=== PATIENT | male | born 1985 | race Caucasian/White ===

== ENCOUNTER 2023-11-24 11:44 | Inpatient (IN) ==
[2023-11-24 12:26] LABS: Basophils # (auto) 0.05 K/uL (0.00-0.20); Basophils % (auto) 0.5 %; Eosinophils # (auto) 0.21 K/uL (0.00-0.50); Eosinophils % (auto) 1.9 %; Hematocrit (blood only) 42.8 % (42.0-52.0); Hemoglobin 14.7 g/dl (14.0-18.0); Immature Granulocytes # (auto) 0.06 K/uL (0.01-0.20); Immature Granulocytes % (auto) 0.6 %; Lymphocytes # (auto) 1.83 K/uL (1.20-3.40); Lymphocytes % (auto) 16.8 %; Mean Corpuscular Hemoglobin 30.5 pg (25.0-34.0); Mean Corpuscular Hgb Conc 34.3 g/dL (32.0-36.0); Mean Corpuscular Volume 88.8 fL (80.0-100.0); Mean Platelet Volume 10.8 fL (9.4-12.4); Monocytes # (auto) 0.92 K/uL (0.11-0.59); Monocytes % (auto) 8.4 %; Neutrophils # (auto) 7.83 K/uL (1.40-6.50); Neutrophils % (auto) 71.8 %; Platelet Count 189 K/uL (130-400); RDW Coefficient of Variation 12.8 % (11.5-14.5); RDW Standard Deviation 41.5 fL (36.4-46.3); Red Blood Count 4.82 M/uL (4.70-6.10)
[2023-11-24] MEDS ORDERED: ONDANSETRON INJ 2 MG/ML 2 ML VIAL IV STA (12:51)
[2023-11-24] MEDS ORDERED: MoRPHine SULFATE 4 MG/ML 1 ML CARP\\VIAL IV STA ×2 (12:51→17:28)
[2023-11-24] MEDS ORDERED: SODIUM CHLORIDE 0.9% 1,000 ML IV ONE (12:51)
[2023-11-24 13:01] LABS: Albumin Globulin Ratio 1.5 (0.9-2); BUN Creatinine Ratio 9.3 (10-20); Bilirubin,Total 0.6 mg/dl (0.2-1.0); Calcium 8.9 mg/dl (8.6-10.3); Creatinine Clr Calc Pharmacy 109.9 ml/min; Est GFR (African American) 101.8 ml/min; Est GFR (Non-African American) 87.8 ml/min; Globulin 2.6 gm/dl (2.5-4.0); Magnesium 1.2 mg/dl (1.7-2.4); Potassium 3.1 mmol/L (3.5-5.1); Total Protein 6.6 gm/dl (6.0-8.3)
[2023-11-24] MEDS: MAGNESIUM SULFATE / D5W 1 GM/100 ML BAG IV SCH ×2 (13:58→14:52)
--- NOTE | 2023-11-24 14:29 | History & Physical Report ---
Date of Service November 24, 2023 Assessment & Plan (1) Acute pancreatitis: Plan: Patient was seen at [facility] ED on the evening of 11/23 and diagnosed with pancreatitis; plan was for admission, but given no GI doctor was available and patient was unsure if he could get off work in the morning, patient decided to leave Patient came to [facility] ED on 11/24 for sharp epigastric pain radiating to back x 5 days Denies alcohol use Mild leukocytosis at 10.90 with a neutrophil predominance; afebrile Lipase mildly elevated 160 on arrival LFTs WNL Triglyceride level mildly elevated at 217 UA positive for proteins +2; urine protein/creatinine ratio ordered, pending EKG revealed NSR at 70 bpm; QTc 421 Keep n.p.o. for now, then advance to clear liquid diet at 24-48 hours; low-fat diet as tolerated Continue fluid resuscitation with LR at 150 mL/hr x 5 Zofran as needed for nausea/vomiting CT with imaging from [facility] ED uploaded via CD suggestive of pancreatitis; consider obtaining a second CT abdomen/pelvis if clinical deterioration Pain control with acetaminophen and Dilaudid as needed Gastroenterology consulted as CT imaging recommended EUS assessment A.m. CBC, BMP, mag, A1c (2) Hypomagnesemia: Plan: Magnesium 1.2 on arrival Magnesium sulfate 1 g IV x 2 given in the ED ?Secondary to diarrhea/GI losses Recheck a.m. mag (3) Hypokalemia: Plan: Potassium 3.1 on arrival K riders 10mEq x 2 Recheck AM BMP (4) Gout: Plan: Continue allopurinol, colchicine (5) Anxiety: Plan: Continue hydroxyzine (6) GERD (gastroesophageal reflux disease): Plan: Continue pantoprazole (7) Erectile dysfunction: Plan: Continue escitalopram (8) Diarrhea: Plan: Patient endorses dark, tarry stools In the setting of colchine use for gout & recent pepto bismol use for H. pylori infection (Quad therapy with PPI, bismuth, tetracycline, and metronidazole) (9) Tobacco use: Plan: Current tobacco cigarette smoker; 1 PPD Nicotine patch with daily removal while inpatient Plan Disposition: Admit to [facility] telemetry Full code Keep n.p.o. 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 He presented for severe epigastric pain that has been worsening over the past 2 months, with an acute worsening x 5 days. Patient reports that he developed stomach pain 2 months ago and had a colonoscopy and endoscopy; he was subsequently diagnosed with H. pylori and placed on quad therapy with PPI, bismuth, tetracycline, and metronidazole. This course was completed, but then he developed a sharp epigastric pain stabbing just under his rib cage 5 days ago. This pain radiates to his back. He describes it as constant, stabbing. Rated 9/10 at worst, 5/10 at present. Patient has been taking Tylenol 1000 mg daily for the pain. He reports that it is worse with eating. He has not been tolerating solids or liquids due to the pain. The patient went to [facility] ED last night and had a CT/abdomen the pelvis performed with a diagnosis of pancreatitis; the plan was for the patient to be admitted, however the patient decided to leave as [facility] did not have a GI doctor available, and the patient needed to confirm he can get off work. He denies alcohol use. He endorses tobacco cigarette smoking; 1 PPD. He did not take his regular morning medications today, which include medications for gout and anxiety. Patient surgical history includes appendectomy; no history of cholecystectomy. Patient is hypertensive at 152/104 at time of admission; vitals otherwise stable. ED course: Zofran 4 mg IV Morphine sulfate 4 mg IV NSS 1000 mL Magnesium sulfate 1 g IV ROS: Patient endorses chills, sweating, headache, chest palpitations, SOB at rest, epigastric pain radiating to the back, diarrhea, and black tarry stool. Patient denies fever, body aches, dizziness, lightheadedness, nausea/vomiting, or blood in the urine. Allergies Allergy/AdvReac Type Severity Reaction Status Date / Time No Known Allergies Allergy Verified 11/24/23 14:18 Home Medications Medication Instructions Recorded Confirmed Type colchicine 0.6 mg tablet 0.6 mg PO QAM 04/10/23 11/24/23 History hydroxyzine HCl 25 mg tablet 25 mg PO HS 04/10/23 11/24/23 History acetaminophen 500 mg tablet 500 mg PO Q6H PRN pain/fever 11/24/23 11/24/23 History allopurinol 300 mg tablet 300 mg PO QAM 11/24/23 11/24/23 History escitalopram oxalate 20 mg tablet 20 mg PO HS 11/24/23 11/24/23 History pantoprazole 40 mg tablet,delayed 40 mg PO BID 11/24/23 11/24/23 History release Past Med/Surg History Medical History (Updated 11/24/23 @ 17:48 by Walker Fitzgerald PA-C) Tobacco use GERD (gastroesophageal reflux disease) Polycystic kidney disease Surgical History H/O knee surgery Hx of appendectomy Family History Mother Diabetes Cancer Colon Hypertension Kidney stone Father Heart disease Social History Smoking Status: Current every day smoker Tobacco Type: Cigarettes Second Hand Exposure: Yes; Do You Dip or Chew Tobacco: No; Hx Alcohol Use: No Hx Substance Use: No Preferred Language: Fijian Communication Ability: Effective Digital Strategist Required: No Beliefs That Will Affect Care: None marital status: Single Current Living Situation: Family current occupational status: employed Other Information That Helps Us Care for You: No Feels Safe at Home: Yes Safety Concerns: Feels Safe At This Time Assistive Devices: None Review of Systems Review of Systems: See HPI above Physical Exam Physical Exam: General: Mild physical distress secondary to epigastric pain; pleasant affect; non-toxic appearing; well-nourished; cooperative HEENT: normocephalic, atraumatic; no scleral icterus; PERRLA w/ EOMs intact; moist mucus membrane; vision and hearing grossly intact Neck: supple; no lymphadenopathy; trachea midline Skin: warm, dry without signs of tenting; no cyanosis; no rashes, bruising, lesions, or erythema noted CV: chest wall NTP; RRR; S1/S2 normal; no murmurs/rubs/gallops; bounding pulses intact and symmetric at radial, DP, and PT Lungs: no acute respiratory distress; symmetrical chest wall expansion; clear breath sounds across all lung chakraborty w/o adventitious sounds; no wheezing ABD: Soft; epigastric region mildly TTP; BS present; no rebound/guarding; no ascites; no distention; no signs of bruising, bleeding, erythema, or rashes on the abdomen or back; positive CVA tenderness; spine NTP MSK: no tics or fasciculations; no edema noted in the LEs b/l, nonerythematous, decreased hair growth Neuro: A&Ox3; normal mood and affect; fluent speech; no focal deficits; sensation grossly intact in the LEs b/l Results & Data Results & Data Vital Signs (Past 12 Hours) Vital Signs Temp Pulse Pulse Resp BP BP Pulse Ox 11/24/23 13:59 70 18 152/104 H 98 11/24/23 13:02 80 18 152/98 H 96 11/24/23 11:48 37 C 103 H 18 144/103 H 97 O2 Del Method 11/24/23 13:59 Room Air 11/24/23 13:02 Room Air 11/24/23 11:48 Room Air Laboratory Results Abnormal lab results 11/24/23 Range/Units 12:05 WBC 10.90 H (4.8-10.8) K/ul Neut # (Auto) 7.83 H (1.40-6.50) K/uL [place] # (Auto) 0.92 H (0.11-0.59) K/uL Potassium 3.1 L (3.5-5.1) mmol/L BUN/Creatinine Ratio 9.3 L (10-20) Glucose 208 H (70-99(Fasting)) mg/dl Magnesium 1.2 L (1.7-2.4) mg/dl Lipase 160 H (11-82) U/L Diagnostic Findings CT abdomen plus pelvis with contrast received from [facility] (performed at 0008 on 11/24/2023) reported the following impression: Enlarged pancreatic head and uncinate process showing ill-defined hypoenhancing areas with related hypodense sheets as described. The lack of obvious vascular invasion and biliopancreatic obstruction raise the possibility of an inflammatory process (massforming pancreatitis) yet the neoplastic nature cannot be excluded. Advise clinicallaboratory correlation and EUS assessment. Swollen pancreatic body and tail with subtle smudged anahi-pancreatic fat planes and scattered fluid densities. Possibly inflammatory/pancreatitis. Code Status & VTE Plan Code Status Full code VTE Prophylaxis Plan VTE Prophylaxis will be ordered: Yes PG Care Time/CCT Total # of Minutes Spent Total Time Spent with Patient: Total time spent is greater than 50% in coordination of care (as documented) at patient's floor/unit and/or counseling patient: [place] [address] INT INP/OBS CARE 2/55MIN Patient Type New History Comprehensive Exam Comprehensive Medical Decision Making Moderate Complexity Diagnoses Acute pancreatitis K85.90 Hypomagnesemia E83.42 Hypokalemia E87.6 Gout M10.9 Anxiety F41.9 GERD (gastroesophageal reflux disease) K21.9 Erectile dysfunction N52.9 Diarrhea R19.7 Tobacco use Z72.0
[2023-11-24 14:49] LABS: Appearance Urine Clear (Clear); Bacteria Urine Automated Negative (Negative); Bilirubin Urine Negative (Negative); Blood Urine Trace (Negative); Color Urine Yellow; Glucose Urine UA Negative (Negative); Ketones Urine Negative (Negative); Leukocyte Esterase Urine Negative (Negative); Nitrite Urine Negative (Negative); Protein Urine 2+ (Negative); RBC Urine Automated 0-4 /hpf (0-4); Specific Gravity Urine 1.023 (1.000-1.030); Urobilinogen Urine Negative (Negative); pH Urine 6.5 (4.5-7.5)
[2023-11-24] MEDS ORDERED: MAGNESIUM SULFATE / D5W 1 GM/100 ML BAG IV ONE (15:28)
[2023-11-24] MEDS: LACTATED RINGER'S 1,000 ML IV SCH ×2 (15:49→21:39)
[2023-11-24] MEDS: POTASSIUM CHLORIDE / WTR 10 MEQ/100 ML PLCT IV SCH ×2 (15:50→16:53)
--- NOTE | 2023-11-24 16:21 | Emergency Department Note ---
History of Present Illness General Chief complaint: GI Assessment Stated complaint: gi problems History of Present Illness Provider complaint: Abdominal pain Maximum Pain Intensity: 8 38-year-old male presents emergency department for abdominal pain. Patient reports he has been having abdominal pain for the last few days. He reports that he went to [facility] emergency department and they told him his electrolytes were off and that he had pancreatitis and they wanted to transfer him to a facility that had GI capabilities because their facility does not and he decided to leave [facility] and come here to be evaluated first pancreatitis. He reports nausea no vomiting. He reports no alcohol or drug abuse. No fevers. No hematuria or dysuria. No melena or hematochezia. Home Medications Medication Instructions Recorded Confirmed Type colchicine 0.6 mg tablet 0.6 mg PO QAM 04/10/23 11/24/23 History hydroxyzine HCl 25 mg tablet 25 mg PO HS 04/10/23 11/24/23 History acetaminophen 500 mg tablet 500 mg PO Q6H PRN pain/fever 11/24/23 11/24/23 History allopurinol 300 mg tablet 300 mg PO QAM 11/24/23 11/24/23 History escitalopram oxalate 20 mg tablet 20 mg PO HS 11/24/23 11/24/23 History pantoprazole 40 mg tablet,delayed 40 mg PO BID 11/24/23 11/24/23 History release Allergies Allergy/AdvReac Type Severity Reaction Status Date / Time No Known Allergies Allergy Verified 11/24/23 14:18 Past Med/Surg History Medical History GERD (gastroesophageal reflux disease) Polycystic kidney disease Surgical History H/O knee surgery Hx of appendectomy Family History Mother Diabetes Cancer Colon Hypertension Kidney stone Father Heart disease Social History Smoking Status: Current every day smoker Hx Alcohol Use: Yes Preferred Language: Luxembourger marital status: Single current occupational status: employed Feels Safe at Home: Yes Physical Exam Vital Signs Vital Signs - 24 hr 11/24/23 11:48 11/24/23 13:02 11/24/23 13:59 Temperature 37 C Temperature Source Temporal Artery Scan Pulse Rate 103 H Pulse Rate [Right Finger] 80 70 Pulse Rhythm [Right Finger] Respiratory Rate 18 18 18 Respiratory Effort / Characteristics Non-Labored Spontaneous Non-Labored Respiratory Depth Normal Normal Respiratory Pattern Blood Pressure 144/103 H Blood Pressure [Left Arm] 152/98 H 152/104 H Blood Pressure Mean 116 Blood Pressure Mean [Left Arm] 116 120 Blood Pressure Position Sitting Blood Pressure Position [Left Arm] Lying Pulse Oximetry 97 96 98 Oxygen Delivery Method Room Air Room Air Room Air Sepsis Recent Fever Within 48 Hours No Sepsis New/Unexplained Change in Mental Status No Sepsis Action Taken by Nursing No Action Required 11/24/23 16:00 Temperature Temperature Source Pulse Rate Pulse Rate [Right Finger] 72 Pulse Rhythm [Right Finger] Regular Respiratory Rate 18 Respiratory Effort / Characteristics Non-Labored Respiratory Depth Normal Respiratory Pattern Regular Blood Pressure Blood Pressure [Left Arm] 160/113 H Blood Pressure Mean Blood Pressure Mean [Left Arm] 128 Blood Pressure Position Blood Pressure Position [Left Arm] Pulse Oximetry 97 Oxygen Delivery Method Room Air Sepsis Recent Fever Within 48 Hours Sepsis New/Unexplained Change in Mental Status Sepsis Action Taken by Nursing Physical Exam GENERAL: She is oriented to person, place, and time. She appears well-developed and well-nourished. She does not appear distressed. HENT: Exam performed. -Head: Normocephalic and atraumatic. -Right Ear: External ear normal. No mastoid erythema -Left Ear: External ear normal. No mastoid erythema -Mouth/Throat: The oropharynx is clear and moist. No trismus in the jaw. No dental abscesses or uvula swelling. No oropharyngeal exudate or tonsillar abscesses. EYES: Conjunctivae and EOM are normal.Right eye exhibits no discharge. Left eye exhibits no discharge. No scleral icterus. NECK: Normal range of motion. Neck supple. No JVD present. No tracheal deviation and normal range of motion present. CV: Normal rate, regular rhythm, normal heart sounds and intact distal pulses. There is no peripheral edema. Palpable radial pulses bue. PULM/CHEST: Effort normal and breath sounds normal. No respiratory distress. No stridor. She has no wheezes. She has no rales. -Chest Wall: She exhibits no tenderness. ABD: The abdomen is soft. Bowel sounds are normal. She has no distension. No mass is present. There is tenderness to palpation of the epigastric area. There is no rebound, no guarding, no Salomon's sign and no tenderness at McBurney's point. Rovsig negative MUSC/SKEL: Normal range of motion. There is no peripheral edema, tenderness or deformity. NEURO: Motor and sensation grossly intact. SKIN: Skin is warm and dry. She is not diaphoretic. PSYCH: She has a normal mood and affect. Behavior is normal. Judgment and thought content normal. Course Course : The patient was evaluated in room D1A. A complete history and physical exam was performed Cardiac monitoring: An order was placed for continuous cardiac monitoring. The monitor shows a rate of 70 with snus rhythm interpreted by me Patient presents emergency department with a CT disc with the images from his CT scan that were done at [facility] [address]. Will attempt to have these images uploaded to our PACS system. 1335: Vital signs stable. Labs are unremarkable with the exception of a magnesium of 1.2 and potassium of 3.1. Electrolyte repletion will be started in the emergency department. Lipase 160. Spoke with Dr. Jones and read him the report of the patient's CT from [facility] verbatim. He states that the patient might need an EUS and recommends that we speak with Ryan GALLARDO. 1340: Spoke with Glenys Davis. She states that the patient can be admitted to the hospitalist team and we should treat the patient as regular pancreatitis patient. Patient will be admitted to the [facility] hospitalist team. Administered Medications Lactated Ringer's (Lr) 1,000 mls @ 150 mls/hr IV .Q6H40M [facility] Stop: 11/26/23 00:04 Last Admin: 11/24/23 15:49 Dose: 150 mls/hr Documented By: LAWRENCE Magnesium Sulfate/Dextrose (Magnesium Sulfate / D5w) 1 gm in 100 mls @ 50 mls/hr IV ONE ONE Stop: 11/24/23 17:27 Last Admin: 11/24/23 15:50 Dose: 50 mls/hr Documented By: LAWRENCE Potassium Chloride ([place] / Wtr) 10 meq in 100 mls @ 100 mls/hr IV Q1H [facility] Stop: 11/24/23 17:29 Last Admin: 11/24/23 15:50 Dose: 100 mls/hr Documented By: LAWRENCE Discontinued Medications Sodium Chloride (Nss) 1,000 mls @ 999 mls/hr IV .Q1H1M ONE Stop: 11/24/23 13:51 Last Infusion: 11/24/23 14:46 Dose: Infused Documented By: Admin: 11/24/23 12:58 Dose: 999 mls/hr Documented By: KATYA Magnesium Sulfate/Dextrose (Magnesium Sulfate / D5w) 1 gm in 100 mls @ 100 mls/hr IV Q1H JUSTINO Stop: 11/24/23 15:34 Last Infusion: 11/24/23 15:50 Dose: Infused Documented By: Admin: 11/24/23 14:52 Dose: 100 mls/hr Documented By: Infusion: 11/24/23 14:52 Dose: Infused Documented By: Admin: 11/24/23 13:58 Dose: 100 mls/hr Documented By: EMELI Morphine Sulfate (Morphine Sulfate 4 Mg/Ml 1 Ml Carp\Vial) 4 mg IV NOW STA Stop: 11/24/23 12:52 Last Admin: 11/24/23 12:58 Dose: 4 mg Documented By: KATYA Ondansetron HCl (Ondansetron Inj 2 Mg/Ml 2 Ml Vial) 4 mg IV NOW STA Stop: 11/24/23 12:52 Last Admin: 11/24/23 12:58 Dose: 4 mg Documented By: KATYA Medical Decision Making Medical Records Attestation: I reviewed the patient's medical records. Patient presents with a CT abdomen report from [facility] [address]. CT of the abdomen pelvis report reads as the following: Enlarged pancreatic head and uncinate process showing ill-defined hypoenhancing areas, most evident along its medial and superior aspects. Is seen measuring about 3.7 x 4.2 cm along its axial diameters, indenting and relatively attenuating the portal vein confluence with no obvious infiltration. Smudge surrounding fat planes with related. Pancreas and pancreaticoduodenal hypodense sheets are seen extending along the jamey hepatis and portacaval regions creeping along the course of the extrahepatic biliary tracts. Associated relatively swollen pancreatic body and tail with subtle smudged peripancreatic fat planes and scattered pancreatic parenchymal and peripancreatic small foci of fluid densities. No pancreatic duct dilatation. Pain is superior mesenteric vesicles. However size liver showing segment 2 subscapular hypodense lesion measuring about 2.7 x 1.8 cm. No dilated intra or extrahepatic biliary tracts. Relatively collapsed gallbladder showing minimal and mural thickening likely fasting with no obvious radiodense calculi. The impression also advised clinical-laboratory correlation and EUS assessment possibly inflammatory/pancreatitis. Laboratory Data Attestation: I reviewed the patient's lab results. 11/24/23 12:05 11/24/23 12:05 Lab Results 11/24/23 11/24/23 Range/Units 12:05 Unknown WBC 10.90 H (4.8-10.8) K/ul RBC 4.82 (4.70-6.10) M/uL Hgb 14.7 (14.0-18.0) g/dl Hct 42.8 (42.0-52.0) % MCV 88.8 (80.0-100.0) fL MCH 30.5 (25.0-34.0) pg MCHC 34.3 (32.0-36.0) g/dL RDW Std Deviation 41.5 (36.4-46.3) fL RDW Coeff of [place] 12.8 (11.5-14.5) % Plt Count 189 (130-400) K/uL MPV 10.8 (9.4-12.4) fL Immature Gran % (Auto) 0.6 % Neut % (Auto) 71.8 % Lymph % (Auto) 16.8 % [place] % (Auto) 8.4 % Eos % (Auto) 1.9 % Baso % (Auto) 0.5 % Neut # (Auto) 7.83 H (1.40-6.50) K/uL Lymph # (Auto) 1.83 (1.20-3.40) K/uL [place] # (Auto) 0.92 H (0.11-0.59) K/uL Eos # (Auto) 0.21 (0.00-0.50) K/uL Baso # (Auto) 0.05 (0.00-0.20) K/uL Immature Gran # (Auto) 0.06 (0.01-0.20) K/uL Sodium 140 (136-145) mmol/L Potassium 3.1 L (3.5-5.1) mmol/L Chloride 101 (98-107) mmol/L Carbon Dioxide 30 (21-32) mmol/L Anion Gap 9 (3-11) BUN 10 (6-23) mg/dl Creatinine 1.08 (0.6-1.4) mg/dl Est Cr Clr Drug Dosing 109.9 ml/min Est GFR ( Amer) 101.8 ml/min Est GFR (Non-Af Amer) 87.8 ml/min BUN/Creatinine Ratio 9.3 L (10-20) Glucose 208 H (70-99(Fasting)) mg/dl Calcium 8.9 (8.6-10.3) mg/dl Magnesium 1.2 L (1.7-2.4) mg/dl Total Bilirubin 0.6 (0.2-1.0) mg/dl AST 22 (13-39) U/L ALT 26 (7-52) U/L Alkaline Phosphatase 59 (34-104) U/L Total Protein 6.6 (6.0-8.3) gm/dl Albumin 4.0 (3.4-5.0) gm/dl Globulin 2.6 (2.5-4.0) gm/dl Albumin/Globulin Ratio 1.5 (0.9-2) Triglycerides 217 H (0-150) mg/dl Lipase 160 H (11-82) U/L Urine Color Yellow Urine Appearance Clear (Clear) Urine pH 6.5 (4.5-7.5) Ur Specific [place] 1.023 (1.000-1.030) Urine Protein 2+ H (Negative) Urine Glucose (UA) Negative (Negative) Urine Ketones Negative (Negative) Urine Blood Trace H (Negative) Urine Nitrite Negative (Negative) Urine Bilirubin Negative (Negative) Urine Urobilinogen Negative (Negative) Ur Leukocyte Esterase Negative (Negative) Urine WBC (Auto) 1-5 (0-5) /hpf Urine RBC (Auto) 0-4 (0-4) /hpf U Hyaline Cast (Auto) 1-5 (0-5) /lpf U Epithel Cells (Auto) 10-20 H (0-5) /lpf Urine Bacteria (Auto) Negative (Negative) MDM Narrative : The patient was evaluated in room D1A. A complete history and physical exam was performed Cardiac monitoring: An order was placed for continuous cardiac monitoring. The monitor shows a rate of 70 with snus rhythm interpreted by me Patient presents emergency department with a CT disc with the images from his CT scan that were done at [facility] [address]. Will attempt to have these images uploaded to our PACS system. 1335: Vital signs stable. Labs are unremarkable with the exception of a magnesium of 1.2 and potassium of 3.1. Electrolyte repletion will be started in the emergency department. Lipase 160. Spoke with Dr. Jones and read him the report of the patient's CT from [facility] verbatim. He states that the patient might need an EUS and recommends that we speak with Ryan GALLARDO. 1340: Spoke with Glenys Davis. She states that the patient can be admitted to the hospitalist team and we should treat the patient as regular pancreatitis patient. Patient will be admitted to the [facility] hospitalist team. Impression & Plan Acute pancreatitis, Hypomagnesemia Discharge Plan Visit Data Chief Complaint: GI Assessment Stated Complaint: gi problems ED Provider: Avni Rojas Discharge Problem: Acute pancreatitis, Hypomagnesemia Patient Disposition: Admitted As Inpatient Forms Stand Alone Forms: My [facility] Prescriptions Prescriptions: No Action colchicine 0.6 mg tablet 0.6 mg PO QAM hydroxyzine HCl 25 mg tablet 25 mg PO HS acetaminophen [Tylenol Ex Str Rapid Release] 500 mg Tablet 500 mg PO Q6H PRN (Reason: pain/fever) pantoprazole 40 mg tablet,delayed release (DR/EC) 40 mg PO BID allopurinol 300 mg tablet 300 mg PO QAM escitalopram oxalate 20 mg tablet 20 mg PO HS Referrals Referrals: Zac Seth MD [Primary Care Provider] - Discharge Problem: Acute pancreatitis Qualifiers: Pancreatitis type: unspecified pancreatitis type Acute pancreatitis complication: unspecified Qualified Code(s): K85.90 - Acute pancreatitis without necrosis or infection, unspecified
[2023-11-24 16:22] LABS: Creatinine Urine Random 131.3 mg/dl; Protein Creatinine Ratio Urine 0.8 (0-0.2); Total Protein Urine Random 99.8 mg/dl (0-11.9)
[2023-11-24] MEDS ORDERED: ONDANSETRON INJ 2 MG/ML 2 ML VIAL IV PRN (17:51)
[2023-11-24] MEDS ORDERED: HYDROmorphone INJ 0.5 MG/0.5 ML SYR IV PRN (17:51)
[2023-11-24] MEDS ORDERED: ACETAMINOPHEN 325 MG TAB PO PRN (17:51)
[2023-11-24] MEDS: HYDROmorphone INJ 1 MG/ML SYRINGE IV PRN (18:33)
[2023-11-24] MEDS: ENOXAPARIN INJ 40 MG/0.4 ML SYR SQ SCH (21:26)
[2023-11-24] MEDS: NICOTINE 14 MG/24 HR PATCH TD SCH (21:26)
[2023-11-24] MEDS: ESCITALOPRAM OXALATE 20 MG TAB PO SCH (21:27)
[2023-11-24] MEDS: PANTOprazole 40 MG TAB PO SCH (21:27)
[2023-11-24] MEDS: hydrOXYzine HCl 25 MG TAB PO SCH (21:27)
[2023-11-25] MEDS: HYDROmorphone INJ 1 MG/ML SYRINGE IV PRN ×5 (00:45→21:58)
[2023-11-25] MEDS ORDERED: ARTIFICIAL TEARS OPB PRN (01:34)
[2023-11-25] MEDS: LACTATED RINGER'S 1,000 ML IV SCH ×4 (04:05→17:20)
[2023-11-25 08:14] LABS: Basophils # (auto) 0.05 K/uL (0.00-0.20); Basophils % (auto) 0.5 %; Eosinophils # (auto) 0.17 K/uL (0.00-0.50); Eosinophils % (auto) 1.6 %; Hemoglobin 13.7 g/dl (14.0-18.0); Immature Granulocytes # (auto) 0.04 K/uL (0.01-0.20); Immature Granulocytes % (auto) 0.4 %; Lymphocytes # (auto) 1.57 K/uL (1.20-3.40); Lymphocytes % (auto) 14.6 %; Mean Corpuscular Hemoglobin 30.8 pg (25.0-34.0); Mean Corpuscular Hgb Conc 35.1 g/dL (32.0-36.0); Mean Corpuscular Volume 87.6 fL (80.0-100.0); Mean Platelet Volume 10.7 fL (9.4-12.4); Monocytes # (auto) 0.82 K/uL (0.11-0.59); Monocytes % (auto) 7.6 %; Neutrophils # (auto) 8.11 K/uL (1.40-6.50); Neutrophils % (auto) 75.3 %; Platelet Count 172 K/uL (130-400); RDW Coefficient of Variation 12.8 % (11.5-14.5); RDW Standard Deviation 40.8 fL (36.4-46.3); Red Blood Count 4.45 M/uL (4.70-6.10); White Blood Count 10.76 K/ul (4.8-10.8)
[2023-11-25 08:33] LABS: BUN Creatinine Ratio 11.4 (10-20); Calcium 8.9 mg/dl (8.6-10.3); Creatinine Clr Calc Pharmacy 134.9 ml/min; Est GFR (African American) 128.1 ml/min; Est GFR (Non-African American) 110.5 ml/min; Magnesium 1.1 mg/dl (1.7-2.4); Potassium 3.2 mmol/L (3.5-5.1)
[2023-11-25] MEDS: NICOTINE 14 MG/24 HR PATCH TD SCH (08:35)
[2023-11-25] MEDS: allopurinoL 300 MG TAB PO SCH (08:35)
[2023-11-25] MEDS: COLCHICINE 0.6 MG TAB PO SCH (08:35)
[2023-11-25 09:01] LABS: Estimated Average Glucose 123 mg/dl; Hemoglobin A1C 5.9 % (4.5-5.6)
--- NOTE | 2023-11-25 09:12 | Gastrointestinal Consultation ---
Date of Consultation November 25, 2023 Assessment & Plan (1) Acute pancreatitis: 38 year old male with abd pain, nausea with OSH imaging concerning for pancreatitis NPO MRI ABD IV LR 150-200 mL/hr Antiemetics PRN Analgesia PRN Pending MRI will discuss timing of endoscopic procedures Thank you for allowing us to participate in the care of this patient. Please call with any acute changes, questions or concerns. Please see addendum below with additional recommendation from my supervising physician. Supervising Physician Co-Signing Physician Notes Attg add: I intereviewed and examined pt, reviewed chart and labs. Pt with 5 days of epigastric pain radiating to back; no prior history. + tobacco, denies etoh, MJ. No stones or mary dil on imaging, LFT's normal. Labs do not show sig hemoconcentration. On exam, he appears mildly dry. Abd exam shows only mild tenderness in epigastrium. MRI shows no mary dil, enlarged pancreas without peripanc fluid, muld small cysts throughout the pancreas. Pancreatitis - etiology unclear, possibly related to panc cysts. - Panc cysts may be serous given h/o PCKD; unsure if this is possible cause of pancreatitis. His PD is not well visualized on MRCP, and it is possible that cysts are impinging on PD. DDX = multifocal IPMN, which may also be a cause of pancreatitis. - IVF's, analgesia, diet as tolerated. Plan for repeat outpt imaging. History of Present Illness Reason for Consultation: ?pancreatitis Requesting Physician: Kae Attending Physician: Melanie Pal MD History of Present Illness 38 year old male admitted through the ED w/ pain, outside imaging showing pancreatitis - GI asked to evaluate. Pt was seen and evaluated, chart reviewed. Notes that he recently had an EGD/Colon completed in July in [place] for abd pain. Was found to have H.Pylori, this was treated. Suggests that about 1-2 weeks ago, started having different abd pain. Upper abd. Sharp. Constant. Mild nausea but no vomiting. This persistent so he went to the ED. In the ED was told he had pancreatitis but may need follow up testing thus was recommended to come to [facility]. This AM, pain is improved. He has nausea. No vomiting. Denies any ETOH use Denies illicit drug use + tobacco Only new medications were the ABX for H.Pylori a few months ago Father had issues with gallbladder and gallstones CTAP report is copied from ED note as it was done at OSH: Enlarged pancreatic head and uncinate process showing ill-defined hypoenhancing areas, most evident along its medial and superior aspects. Is seen measuring about 3.7 x 4.2 cm along its axial diameters, indenting and relatively attenuating the portal vein confluence with no obvious infiltration. Smudge surrounding fat planes with related. Pancreas and pancreaticoduodenal hypodense sheets are seen extending along the jamey hepatis and portacaval regions creeping along the course of the extrahepatic biliary tracts. Associated relatively swollen pancreatic body and tail with subtle smudged peripancreatic fat planes and scattered pancreatic parenchymal and peripancreatic small foci of fluid densities. No pancreatic duct dilatation. Pain is superior mesenteric vesicles. However size liver showing segment 2 subscapular hypodense lesion measuring about 2.7 x 1.8 cm. No dilated intra or extrahepatic biliary tracts. Relatively collapsed gallbladder showing minimal and mural thickening likely fasting with no obvious radiodense calculi. Allergies Allergy/AdvReac Type Severity Reaction Status Date / Time No Known Allergies Allergy Verified 11/24/23 14:18 Home Medications Medication Instructions Recorded Confirmed Type colchicine 0.6 mg tablet 0.6 mg PO QAM 04/10/23 11/24/23 History hydroxyzine HCl 25 mg tablet 25 mg PO HS 04/10/23 11/24/23 History acetaminophen 500 mg tablet 500 mg PO Q6H PRN pain/fever 11/24/23 11/24/23 History allopurinol 300 mg tablet 300 mg PO QAM 11/24/23 11/24/23 History escitalopram oxalate 20 mg tablet 20 mg PO HS 11/24/23 11/24/23 History pantoprazole 40 mg tablet,delayed 40 mg PO BID 11/24/23 11/24/23 History release Patient History Medical History (Updated 11/24/23 @ 18:41 by Walker Fitzgerald PA-C) Tobacco use GERD (gastroesophageal reflux disease) Polycystic kidney disease Surgical History H/O knee surgery Hx of appendectomy Family History Mother Diabetes Cancer Colon Hypertension Kidney stone Father Heart disease Social History Smoking Status: Current every day smoker Tobacco Type: Cigarettes Second Hand Exposure: Yes; Do You Dip or Chew Tobacco: No; Hx Alcohol Use: No Hx Substance Use: No Preferred Language: Moroccan Communication Ability: Effective Dispatcher Tugboat Required: No Beliefs That Will Affect Care: None marital status: Single Current Living Situation: Family current occupational status: employed Other Information That Helps Us Care for You: No Feels Safe at Home: Yes Safety Concerns: Feels Safe At This Time Assistive Devices: None Review of Systems Review of Systems: All systems reviewed & are unremarkable except as noted in HPI & below Physical Exam Constitutional: WD/WN, vitals as above Respiratory: normal respiratory effort Cardiovascular: Rate/Rhythm: regular rate Gastrointestinal (Abdomen): Percussion/Palpation: + abdomen tender (mild upper abd pain with palpation) and abdomen soft; no guarding and abdomen not rigid Skin: no rashes, warm and dry Results & Data Vital Signs (Past 12 Hours) Vital Signs Temp Pulse Pulse Resp BP Pulse Ox O2 Del Method 11/25/23 07:46 37.3 C 82 16 155/90 H 94 Room Air 11/25/23 07:25 79 11/25/23 03:04 37.1 C 84 16 142/89 H 94 Room Air 11/24/23 23:00 90 11/24/23 22:54 37.2 C 88 16 145/94 H 96 Room Air Laboratory Results 11/25/23 11/24/23 11/24/23 Range/Units 07:53 Unknown 15:55 WBC 10.76 (4.8-10.8) K/ul RBC 4.45 L (4.70-6.10) M/uL Hgb 13.7 L (14.0-18.0) g/dl Hct 39.0 L (42.0-52.0) % MCV 87.6 (80.0-100.0) fL MCH 30.8 (25.0-34.0) pg MCHC 35.1 (32.0-36.0) g/dL RDW Std Deviation 40.8 (36.4-46.3) fL RDW Coeff of Meche 12.8 (11.5-14.5) % Plt Count 172 (130-400) K/uL MPV 10.7 (9.4-12.4) fL Immature Gran % (Auto) 0.4 % Neut % (Auto) 75.3 % Lymph % (Auto) 14.6 % [place] % (Auto) 7.6 % Eos % (Auto) 1.6 % Baso % (Auto) 0.5 % Neut # (Auto) 8.11 H (1.40-6.50) K/uL Lymph # (Auto) 1.57 (1.20-3.40) K/uL [place] # (Auto) 0.82 H (0.11-0.59) K/uL Eos # (Auto) 0.17 (0.00-0.50) K/uL Baso # (Auto) 0.05 (0.00-0.20) K/uL Immature Gran # (Auto) 0.04 (0.01-0.20) K/uL Sodium 141 (136-145) mmol/L Potassium 3.2 L (3.5-5.1) mmol/L Chloride 102 (98-107) mmol/L Carbon Dioxide 28 (21-32) mmol/L Anion Gap 11 (3-11) BUN 10 (6-23) mg/dl Creatinine 0.88 (0.6-1.4) mg/dl Est Cr Clr Drug Dosing 134.9 ml/min Est GFR ( Amer) 128.1 ml/min Est GFR (Non-Af Amer) 110.5 ml/min BUN/Creatinine Ratio 11.4 (10-20) Glucose 81 (70-99(Fasting)) mg/dl Estimat Average Glucose 123 mg/dl Hemoglobin A1c 5.9 H (4.5-5.6) % Calcium 8.9 (8.6-10.3) mg/dl Magnesium 1.1 L (1.7-2.4) mg/dl Total Bilirubin (0.2-1.0) mg/dl AST (13-39) U/L ALT (7-52) U/L Alkaline Phosphatase (34-104) U/L Total Protein (6.0-8.3) gm/dl Albumin (3.4-5.0) gm/dl Globulin (2.5-4.0) gm/dl Albumin/Globulin Ratio (0.9-2) Triglycerides (0-150) mg/dl Lipase (11-82) U/L Urine Color Yellow Urine Appearance Clear (Clear) Urine pH 6.5 (4.5-7.5) Ur Specific [place] 1.023 (1.000-1.030) Urine Protein 2+ H (Negative) Urine Glucose (UA) Negative (Negative) Urine Ketones Negative (Negative) Urine Blood Trace H (Negative) Urine Nitrite Negative (Negative) Urine Bilirubin Negative (Negative) Urine Urobilinogen Negative (Negative) Ur Leukocyte Esterase Negative (Negative) Urine WBC (Auto) 1-5 (0-5) /hpf Urine RBC (Auto) 0-4 (0-4) /hpf U Hyaline Cast (Auto) 1-5 (0-5) /lpf U Epithel Cells (Auto) 10-20 H (0-5) /lpf Urine Bacteria (Auto) Negative (Negative) Ur Random Creatinine 131.3 mg/dl U Random Total Protein 99.8 H (0-11.9) mg/dl Protein/Creatinin Ratio 0.8 H (0-0.2) 11/24/23 Range/Units 12:05 WBC 10.90 H (4.8-10.8) K/ul RBC 4.82 (4.70-6.10) M/uL Hgb 14.7 (14.0-18.0) g/dl Hct 42.8 (42.0-52.0) % MCV 88.8 (80.0-100.0) fL MCH 30.5 (25.0-34.0) pg MCHC 34.3 (32.0-36.0) g/dL RDW Std Deviation 41.5 (36.4-46.3) fL RDW Coeff of Meche 12.8 (11.5-14.5) % Plt Count 189 (130-400) K/uL MPV 10.8 (9.4-12.4) fL Immature Gran % (Auto) 0.6 % Neut % (Auto) 71.8 % Lymph % (Auto) 16.8 % [place] % (Auto) 8.4 % Eos % (Auto) 1.9 % Baso % (Auto) 0.5 % Neut # (Auto) 7.83 H (1.40-6.50) K/uL Lymph # (Auto) 1.83 (1.20-3.40) K/uL [place] # (Auto) 0.92 H (0.11-0.59) K/uL Eos # (Auto) 0.21 (0.00-0.50) K/uL Baso # (Auto) 0.05 (0.00-0.20) K/uL Immature Gran # (Auto) 0.06 (0.01-0.20) K/uL Sodium 140 (136-145) mmol/L Potassium 3.1 L (3.5-5.1) mmol/L Chloride 101 (98-107) mmol/L Carbon Dioxide 30 (21-32) mmol/L Anion Gap 9 (3-11) BUN 10 (6-23) mg/dl Creatinine 1.08 (0.6-1.4) mg/dl Est Cr Clr Drug Dosing 109.9 ml/min Est GFR ( Amer) 101.8 ml/min Est GFR (Non-Af Amer) 87.8 ml/min BUN/Creatinine Ratio 9.3 L (10-20) Glucose 208 H (70-99(Fasting)) mg/dl Estimat Average Glucose mg/dl Hemoglobin A1c (4.5-5.6) % Calcium 8.9 (8.6-10.3) mg/dl Magnesium 1.2 L (1.7-2.4) mg/dl Total Bilirubin 0.6 (0.2-1.0) mg/dl AST 22 (13-39) U/L ALT 26 (7-52) U/L Alkaline Phosphatase 59 (34-104) U/L Total Protein 6.6 (6.0-8.3) gm/dl Albumin 4.0 (3.4-5.0) gm/dl Globulin 2.6 (2.5-4.0) gm/dl Albumin/Globulin Ratio 1.5 (0.9-2) Triglycerides 217 H (0-150) mg/dl Lipase 160 H (11-82) U/L Urine Color Urine Appearance (Clear) Urine pH (4.5-7.5) Ur Specific [place] (1.000-1.030) Urine Protein (Negative) Urine Glucose (UA) (Negative) Urine Ketones (Negative) Urine Blood (Negative) Urine Nitrite (Negative) Urine Bilirubin (Negative) Urine Urobilinogen (Negative) Ur Leukocyte Esterase (Negative) Urine WBC (Auto) (0-5) /hpf Urine RBC (Auto) (0-4) /hpf U Hyaline Cast (Auto) (0-5) /lpf U Epithel Cells (Auto) (0-5) /lpf Urine Bacteria (Auto) (Negative) Ur Random Creatinine mg/dl U Random Total Protein (0-11.9) mg/dl Protein/Creatinin Ratio (0-0.2) (1) Acute pancreatitis Acute pancreatitis complication: unspecified Pancreatitis type: unspecified pancreatitis type Qualified Code(s): K85.90 - Acute pancreatitis without necrosis or infection, unspecified
[2023-11-25] MEDS: PANTOprazole 40 MG TAB PO SCH ×2 (10:45→21:57)
[2023-11-25] MEDS ORDERED: KETOROLAC TROMETHAMINE 15 MG/ML VIAL IV ONE (11:30)
--- NOTE | 2023-11-25 12:27 | Hospitalist Progress Note ---
Date of Service November 25, 2023 Assessment & Plan (1) Acute pancreatitis: Plan: Patient was seen at [place] ED on the evening of 11/23 and diagnosed with pancreatitis; plan was for admission, but given no GI doctor was available and patient was unsure if he could get off work in the morning, patient decided to leave Patient came to [facility] ED on 11/24 for sharp epigastric pain radiating to back x 5 days Denies any history of alcohol use, denies starting any new medications CT abdomen consistent with acute pancreatitis, elevated lipase as well GI on consult, keep n.p.o. Plan is for MRI abdomen and possible endoscopy afterwards (2) Hypomagnesemia: Plan: Replace (3) Hypokalemia: Plan: Replace (4) Gout: Plan: Continue allopurinol, colchicine (5) Anxiety: Plan: Continue hydroxyzine (6) GERD (gastroesophageal reflux disease): Plan: Continue pantoprazole (7) Erectile dysfunction: Plan: Continue escitalopram (8) Diarrhea: Plan: Patient endorses dark, tarry stools In the setting of colchine use for gout & recent pepto bismol use for H. pylori infection (Quad therapy with PPI, bismuth, tetracycline, and metronidazole) (9) Tobacco use: Plan: Current tobacco cigarette smoker; 1 PPD Nicotine patch with daily removal while inpatient Plan Disposition: Admit to [facility] telemetry Full code Keep n.p.o. for now advance diet as tolerated VTE PPx: Lovenox 40 mg SQ q24h Admission and Anticipated Discharge Date Admission Date: November 24, 2023 Subjective Patient seen and examined, said the pain is much better is willing to try diet Review of Systems Review of Systems: All systems reviewed are negative, apart from the ones contained in the history. Physical Exam Physical Exam: The patient is awake, alert and oriented 3, well developed and well nourished, normocephalic and atraumatic, lying in bed and in no acute distress. HEENT--PERRL, EOMI, mucous membranes and oropharynx mildly dry Neck--supple. No JVD. No bruits. Thyroid normal, trachea midline, no adenopathy. Heart--normal S1 and S2. No murmurs, rubs or gallops. Lungs--clear bilaterally, no respiratory distress, no accessory muscle use. Abdomen--normal bowel sounds and soft. Mild epigastric and left sided abdominal pain Extremities--no cyanosis or clubbing. No edema. Dermatologic--normal skin turgor, normal color, no abnormal lymph nodes, no rash. Neurologic--cranial nerves II through XII grossly intact. Rheumatologic--normal range of motion. Psychiatric--normal affect. Results & Data Results & Data Vital Signs (Past 12 Hours) Vital Signs Temp Pulse Pulse Resp BP Pulse Ox O2 Del Method 11/25/23 11:32 98.1 F 87 18 128/85 93 Room Air 11/25/23 08:30 Room Air 11/25/23 07:46 99.1 F 82 16 155/90 H 94 Room Air 11/25/23 07:25 79 11/25/23 03:04 98.8 F 84 16 142/89 H 94 Room Air PG Care Time/CCT Total # of Minutes Spent Total Time Spent with Patient: Total time spent is greater than 50% in coordination of care (as documented) at patient's floor/unit and/or counseling patient: Coding Level of Care Code 45105 SUB INP/OBS CARE 2/35MIN Diagnoses Acute pancreatitis K85.90 Acute pancreatitis complication: unspecified Pancreatitis type: unspecified pancreatitis type Hypomagnesemia E83.42 Hypokalemia E87.6 Gout M10.9 Anxiety F41.9 GERD (gastroesophageal reflux disease) K21.9 Erectile dysfunction N52.9 Diarrhea R19.7 Tobacco use Z72.0 Time Spent (min) 35 (1) Acute pancreatitis Acute pancreatitis complication: unspecified Pancreatitis type: unspecified pancreatitis type Qualified Code(s): K85.90 - Acute pancreatitis without necrosis or infection, unspecified
[2023-11-25] MEDS ORDERED: GADOBUTROL 65ML VIAL IV ONE (13:34)
--- NOTE | 2023-11-25 14:11 | Magnetic Resonance Report ---
MRI OF THE ABDOMEN COMBO; MRCP CLINICAL HISTORY: Pancreatitis. COMPARISON STUDY: Abdominal CT dated 11/23/2023. TECHNIQUE: MRI of the abdomen is performed transverse T1 and T2-weighted sequences in the axial and c oronal planes. Contrast enhanced sequences were acquired following the IV administration of 9 cc of Gadavist. Diffusion weighted imaging and subtraction images were utilized. High-resolution MRCP imag es were obtained. 3-D reformats are created and assessed. FINDINGS: Lower chest: No pleural effusion is identified. The heart is normal in size. Liver: The liver is normal in size and contour. The liver shows diffuse drop in signal intensity on t he opposed phase images consistent with hepatic steatosis. No intrahepatic biliary ductal dilatation is seen. The hepatic veins and portal veins are patent. A 2.6 cm left lobe cyst is noted. Gallbladder/MRCP: The gallbladder is normal in appearance. No gallstones are identified. There is no intra or extrahepatic biliary ductal dilatation. The common bile duct measures up to 3.5 mm. No intra luminal filling defects are seen to suggest choledocholithiasis. The imaged portions of the pancreati c duct near the ampulla are normal in appearance. Spleen: The spleen is enlarged measuring 15 cm in length. Pancreas: The pancreas is enlarged comment heterogeneous, and edematous. There is peripancreatic infl ammation and fluid consistent with acute pancreatitis. The gland enhances throughout. Numerous (great er than 10) tiny cystic foci are seen throughout the pancreas and measure up to 1.0 cm. These are gre atest in the head and uncinate. No peripancreatic fluid collection is clearly seen. Adrenal glands: Unremarkable. Kidneys: The kidneys are normal in size and without hydronephrosis. The kidneys enhance and excrete s ymmetrically. There are numerous simple and complex renal cysts which measure up to 11 mm, left kidne y greater than right. No enhancing cortical lesion is identified. Abdominal aorta: Normal in course and caliber. Bowel: Visualized portions of the small bowel and colon show no evidence of obstruction. Peritoneum: There is no abdominal ascites. Retroperitoneal fluid is related to pancreatitis. Lymphadenopathy: None. Skeletal structures: Visualized skeletal structures times are normal marrow signal intensity. IMPRESSION: 1. Acute pancreatitis. This compromises interpretation of the pancreatic parenchyma. 2. The gland is heterogeneous but enhances throughout. There is no MRI evidence of pancreatic necrosi s. 3. Imaged portions of the pancreatic duct near the ampulla are normal in appearance. The remainder th e pancreatic duct is not well-visualized. 4. Otherwise normal MRCP. No gallstones are seen. 5. Numerous cystic foci are seen throughout the pancreas and measure up to 1.0 cm. These cannot defin itely characterize in the setting of acute pancreatitis. This could represent pancreatic cysts, IPMNs , or less likely tiny pseudocysts. Primary pancreatic cystic lesions are favored. A follow-up examina tion in 6 months time is recommended after acute pancreatitis has resolved. 6. Hepatic steatosis. 7. Splenomegaly. 8. There are numerous simple and complex cysts identified in both kidneys, left greater than right. C orrelate clinically for a family history of autosomal dominant polycystic kidney disease. 9. Additional findings as above. ACT 112: Negative or not required by law. Electronically signed by: Bart Leblanc M.D. 11/25/2023 2:08 PM
--- NOTE | 2023-11-25 15:03 | Electrocardiogram Report ---
Test Reason : Blood Pressure : / mmHG Vent. Rate : 070 BPM Atrial Rate : 070 BPM P-R Int : 128 ms QRS Dur : 090 ms QT Int : 390 ms P-R-T Axes : 052 028 001 degrees QTc Int : 421 ms Normal sinus rhythm Normal ECG When compared with ECG of 10-APR-2023 13:15, No significant change was found Confirmed by Zac Ceja ([id number]) on 11/25/2023 3:03:06 PM Referred By: REFERRED SELF Confirmed By:Zac Ceja
[2023-11-25] MEDS: ENOXAPARIN INJ 40 MG/0.4 ML SYR SQ SCH (21:57)
[2023-11-25] MEDS: ESCITALOPRAM OXALATE 20 MG TAB PO SCH (21:57)
[2023-11-25] MEDS: hydrOXYzine HCl 25 MG TAB PO SCH (21:57)
[2023-11-26] MEDS: HYDROmorphone INJ 1 MG/ML SYRINGE IV PRN ×2 (04:30→09:05)
[2023-11-26 06:50] LABS: Basophils # (auto) 0.04 K/uL (0.00-0.20); Basophils % (auto) 0.4 %; Eosinophils # (auto) 0.14 K/uL (0.00-0.50); Eosinophils % (auto) 1.5 %; Hematocrit (blood only) 37.3 % (42.0-52.0); Hemoglobin 13.1 g/dl (14.0-18.0); Immature Granulocytes # (auto) 0.06 K/uL (0.01-0.20); Immature Granulocytes % (auto) 0.6 %; Lymphocytes # (auto) 1.74 K/uL (1.20-3.40); Lymphocytes % (auto) 18.8 %; Mean Corpuscular Hemoglobin 30.8 pg (25.0-34.0); Mean Corpuscular Hgb Conc 35.1 g/dL (32.0-36.0); Mean Corpuscular Volume 87.6 fL (80.0-100.0); Mean Platelet Volume 11.1 fL (9.4-12.4); Monocytes # (auto) 0.95 K/uL (0.11-0.59); Monocytes % (auto) 10.2 %; Neutrophils # (auto) 6.34 K/uL (1.40-6.50); Neutrophils % (auto) 68.5 %; Platelet Count 176 K/uL (130-400); RDW Coefficient of Variation 12.4 % (11.5-14.5); RDW Standard Deviation 39.7 fL (36.4-46.3); Red Blood Count 4.26 M/uL (4.70-6.10); White Blood Count 9.27 K/ul (4.8-10.8)
[2023-11-26 07:21] LABS: BUN Creatinine Ratio 10.4 (10-20); Calcium 9.1 mg/dl (8.6-10.3); Creatinine Clr Calc Pharmacy 123.7 ml/min; Est GFR (African American) 117.4 ml/min; Est GFR (Non-African American) 101.3 ml/min; Potassium 3.8 mmol/L (3.5-5.1)
[2023-11-26] MEDS: NICOTINE 14 MG/24 HR PATCH TD SCH (08:39)
[2023-11-26] MEDS: PANTOprazole 40 MG TAB PO SCH (08:39)
[2023-11-26] MEDS: allopurinoL 300 MG TAB PO SCH (08:39)
[2023-11-26] MEDS: COLCHICINE 0.6 MG TAB PO SCH (08:40)
--- NOTE | 2023-11-26 08:54 | Gastroenterology Progress Note ---
Date of Service November 26, 2023 Assessment & Plan (1) Acute pancreatitis: Plan: 38 year old male with abd pain, nausea with OSH imaging concerning for pancreatitis MRI showing acute pancreatitis, with numerous cystic changes to the pancreas. Clear liquids May advance to a low fat diet as tolerated IV LR 150-200 mL/hr Antiemetics PRN Analgesia PRN OP EUS in about 4 weeks Recall GI as needed. Thank you for allowing us to participate in the care of this patient. Please call with any acute changes, questions or concerns. Please see addendum below with additional recommendation from my supervising physician. Admission and Anticipated Discharge Date Admission Date: November 24, 2023 Supervising Physician Co-Signing Physician Notes Attg add: I interviewed and examined pt, reviewed chart and labs. Pt without any complaint, jad PO. Abd soft NT. Recs as above. Subjective pt was seen and evaluated, chart reviewed notes he is feeling somewhat better less pain no nausea,vomiting did have some regular food last night which caused some pain now back on clears this AM MRI ABD 2023: . Acute pancreatitis. This compromises interpretation of the pancreatic parenchyma.. The gland is heterogeneous but enhances throughout. There is no MRI evidence of pancreatic necrosis. Imaged portions of the pancreatic duct near the ampulla are normal in appearance. The remainder the pancreatic duct is not well-visualized.Otherwise normal MRCP. No gallstones are seen. Numerous cystic foci are seen throughout the pancreas and measure up to 1.0 cm. These cannot definitely characterize in the setting of acute pancreatitis. This could represent pancreatic cysts, IPMNs, or less likely tiny pseudocysts. Primary pancreatic cystic lesions are favored. A follow-up examination in 6 months time is recommended after acute pancreatitis has resolved. Hepatic steatosis. Review of Systems Review of Systems: All systems reviewed & are unremarkable except as noted in HPI & below Physical Exam Constitutional: WD/WN, vitals as above Respiratory: normal respiratory effort, lungs clear to auscultation Cardiovascular: Rate/Rhythm: regular rate Gastrointestinal (Abdomen): normal bowel sounds, soft, nontender, no hepatosplenomegaly Skin: no rashes, warm and dry Results & Data Vital Signs (Past 12 Hours) Vital Signs Temp Pulse Pulse Resp BP Pulse Ox O2 Del Method 11/26/23 07:36 36.9 C 74 18 125/81 94 Room Air 11/26/23 06:42 69 11/26/23 02:58 37.5 C 77 16 123/77 95 Room Air 11/25/23 23:10 37.6 C H 11/25/23 23:00 119 H 11/25/23 22:39 38.2 C H 90 16 157/87 H 92 Room Air Laboratory Results 11/26/23 Range/Units 05:27 WBC 9.27 (4.8-10.8) K/ul RBC 4.26 L (4.70-6.10) M/uL Hgb 13.1 L (14.0-18.0) g/dl Hct 37.3 L (42.0-52.0) % MCV 87.6 (80.0-100.0) fL MCH 30.8 (25.0-34.0) pg MCHC 35.1 (32.0-36.0) g/dL RDW Std Deviation 39.7 (36.4-46.3) fL RDW Coeff of Meche 12.4 (11.5-14.5) % Plt Count 176 (130-400) K/uL MPV 11.1 (9.4-12.4) fL Immature Gran % (Auto) 0.6 % Neut % (Auto) 68.5 % Lymph % (Auto) 18.8 % [place] % (Auto) 10.2 % Eos % (Auto) 1.5 % Baso % (Auto) 0.4 % Neut # (Auto) 6.34 (1.40-6.50) K/uL Lymph # (Auto) 1.74 (1.20-3.40) K/uL [place] # (Auto) 0.95 H (0.11-0.59) K/uL Eos # (Auto) 0.14 (0.00-0.50) K/uL Baso # (Auto) 0.04 (0.00-0.20) K/uL Immature Gran # (Auto) 0.06 (0.01-0.20) K/uL Sodium 141 (136-145) mmol/L Potassium 3.8 (3.5-5.1) mmol/L Chloride 99 (98-107) mmol/L Carbon Dioxide 30 (21-32) mmol/L Anion Gap 12 H (3-11) BUN 10 (6-23) mg/dl Creatinine 0.96 (0.6-1.4) mg/dl Est Cr Clr Drug Dosing 123.7 ml/min Est GFR ( Amer) 117.4 ml/min Est GFR (Non-Af Amer) 101.3 ml/min BUN/Creatinine Ratio 10.4 (10-20) Glucose 69 L (70-99(Fasting)) mg/dl Calcium 9.1 (8.6-10.3) mg/dl (1) Acute pancreatitis Acute pancreatitis complication: unspecified Pancreatitis type: unspecified pancreatitis type Qualified Code(s): K85.90 - Acute pancreatitis without necrosis or infection, unspecified
--- NOTE | 2023-11-26 11:23 | Hospitalist Progress Note ---
Date of Service November 26, 2023 Assessment & Plan (1) Acute pancreatitis: Plan: Patient was seen at [facility] on the evening of 11/23 and diagnosed with pancreatitis; plan was for admission, but given no GI doctor was available and patient was unsure if he could get off work in the morning, patient decided to leave Patient came to [facility] ED on 11/24 for sharp epigastric pain radiating to back x 5 days Denies any history of alcohol use, denies starting any new medications CT abdomen consistent with acute pancreatitis, elevated lipase as well MRI abdomen showed evidence of multiple cysts Plan is outpatient follow-up with GI, for possible endoscopic ultrasound Advance diet as tolerated (2) Hypomagnesemia: Plan: Replace (3) Hypokalemia: Plan: Replace (4) Gout: Plan: Continue allopurinol, colchicine (5) Anxiety: Plan: Continue hydroxyzine (6) GERD (gastroesophageal reflux disease): Plan: Continue pantoprazole (7) Erectile dysfunction: Plan: Continue escitalopram (8) Diarrhea: Plan: Patient endorses dark, tarry stools In the setting of colchine use for gout & recent pepto bismol use for H. pylori infection (Quad therapy with PPI, bismuth, tetracycline, and metronidazole) (9) Tobacco use: Plan: Current tobacco cigarette smoker; 1 PPD Nicotine patch with daily removal while inpatient Plan Hopefully discharge tomorrow Admission and Anticipated Discharge Date Admission Date: November 24, 2023 Subjective Patient seen and examined, abdominal pain is much improved now tolerating diet Review of Systems Review of Systems: All systems reviewed are negative, apart from the ones contained in the history. Physical Exam Physical Exam: The patient is awake, alert and oriented 3, well developed and well nourished, normocephalic and atraumatic, lying in bed and in no acute distress. HEENT--PERRL, EOMI, mucous membranes and oropharynx mildly dry Neck--supple. No JVD. No bruits. Thyroid normal, trachea midline, no adenopathy. Heart--normal S1 and S2. No murmurs, rubs or gallops. Lungs--clear bilaterally, no respiratory distress, no accessory muscle use. Abdomen--normal bowel sounds and soft. Mild epigastric and left sided abdominal pain Extremities--no cyanosis or clubbing. No edema. Dermatologic--normal skin turgor, normal color, no abnormal lymph nodes, no rash. Neurologic--cranial nerves II through XII grossly intact. Rheumatologic--normal range of motion. Psychiatric--normal affect. Results & Data Results & Data Vital Signs (Past 12 Hours) Vital Signs Temp Pulse Pulse Resp BP Pulse Ox O2 Del Method 11/26/23 07:36 98.4 F 74 18 125/81 94 Room Air 11/26/23 06:42 69 11/26/23 02:58 99.5 F 77 16 123/77 95 Room Air PG Care Time/CCT Total # of Minutes Spent Total Time Spent with Patient: Total time spent is greater than 50% in coordination of care (as documented) at patient's floor/unit and/or counseling patient: Coding Level of Care Code 51840 SUB INP/OBS CARE 2/35MIN Diagnoses Acute pancreatitis K85.90 Acute pancreatitis complication: unspecified Pancreatitis type: unspecified pancreatitis type Hypomagnesemia E83.42 Hypokalemia E87.6 Gout M10.9 Anxiety F41.9 GERD (gastroesophageal reflux disease) K21.9 Erectile dysfunction N52.9 Diarrhea R19.7 Tobacco use Z72.0 Time Spent (min) 35 (1) Acute pancreatitis Acute pancreatitis complication: unspecified Pancreatitis type: unspecified pancreatitis type Qualified Code(s): K85.90 - Acute pancreatitis without necrosis or infection, unspecified
--- NOTE | 2023-11-26 11:56 | Discharge Summary ---
Date of Service November 26, 2023 Admission HPI Per Admitting Provider is a 38-year-old male with PMH of gout, anxiety, migraine headaches, and acquired polycystic kidney disease (per review of PCP note on 11/20/2021). He presented for severe epigastric pain that has been worsening over the past 2 months, with an acute worsening x 5 days. Patient reports that he developed stomach pain 2 months ago and had a colonoscopy and endoscopy; he was subsequently diagnosed with H. pylori and placed on quad therapy with PPI, bismuth, tetracycline, and metronidazole. This course was completed, but then he developed a sharp epigastric pain stabbing just under his rib cage 5 days ago. This pain radiates to his back. He describes it as constant, stabbing. Rated 9/10 at worst, 5/10 at present. Patient has been taking Tylenol 1000 mg daily for the pain. He reports that it is worse with eating. He has not been tolerating solids or liquids due to the pain. The patient went to [facility] last night and had a CT/abdomen the pelvis performed with a diagnosis of pancreatitis; the plan was for the patient to be admitted, however the patient decided to leave as [facility] did not have a GI doctor available, and the patient needed to confirm he can get off work. He denies alcohol use. He endorses tobacco cigarette smoking; 1 PPD. He did not take his regular morning medications today, which include medications for gout and anxiety. Patient surgical history includes appendectomy; no history of cholecystectomy. Patient is hypertensive at 152/104 at time of admission; vitals otherwise stable. ED course: Zofran 4 mg IV Morphine sulfate 4 mg IV NSS 1000 mL Magnesium sulfate 1 g IV ROS: Patient endorses chills, sweating, headache, chest palpitations, SOB at rest, epigastric pain radiating to the back, diarrhea, and black tarry stool. Patient denies fever, body aches, dizziness, lightheadedness, nausea/vomiting, or blood in the urine. Principal Diagnosis Acute pancreatitis Discharge Exam The patient is awake, alert and oriented 3, well developed and well nourished, normocephalic and atraumatic, lying in bed and in no acute distress. HEENT--PERRL, EOMI, mucous membranes and oropharynx mildly dry Neck--supple. No JVD. No bruits. Thyroid normal, trachea midline, no adenopathy. Heart--normal S1 and S2. No murmurs, rubs or gallops. Lungs--clear bilaterally, no respiratory distress, no accessory muscle use. Abdomen--normal bowel sounds and soft. Mild epigastric and left sided abdominal pain Extremities--no cyanosis or clubbing. No edema. Dermatologic--normal skin turgor, normal color, no abnormal lymph nodes, no rash. Neurologic--cranial nerves II through XII grossly intact. Rheumatologic--normal range of motion. Psychiatric--normal affect. Discharge Data Allergies Allergy/AdvReac Type Severity Reaction Status Date / Time No Known Allergies Allergy Verified 11/24/23 14:18 Consultations 11/24/23 13:54 ED Decision to Admit Stat 11/24/23 18:16 Consult Gastroenterology Routine Ordered Studies 11/25/23 09:24 MRI Abdomen [MR abdomen wo/w con] Routine Hospital Course (1) Acute pancreatitis: Patient was seen at [facility] on the evening of 11/23 and diagnosed with pancreatitis; plan was for admission, but given no GI doctor was available and patient was unsure if he could get off work in the morning, patient decided to leave Patient came to [facility] on 11/24 for sharp epigastric pain radiating to back x 5 days Denies any history of alcohol use, denies starting any new medications CT abdomen consistent with acute pancreatitis, elevated lipase as well MRI abdomen showed evidence of multiple cysts Plan is outpatient follow-up with GI, for possible endoscopic ultrasound Advance diet as tolerated (2) Hypomagnesemia: Replace (3) Hypokalemia: Replace (4) Gout: Continue allopurinol, colchicine (5) Anxiety: Continue hydroxyzine (6) GERD (gastroesophageal reflux disease): Continue pantoprazole (7) Erectile dysfunction: Continue escitalopram (8) Diarrhea: Patient endorses dark, tarry stools In the setting of colchine use for gout & recent pepto bismol use for H. pylori infection (Quad therapy with PPI, bismuth, tetracycline, and metronidazole) (9) Tobacco use: Current tobacco cigarette smoker; 1 PPD Nicotine patch with daily removal while inpatient Plan Discharge home, follow-up with GI in a couple of weeks Total Time Total Time Spent Total Time Spent (In Minutes): 35 Discharge Plan Discharge Items Patient Disposition: Home - Self-Care Reason For Visit: EPIGASTRIC PAIN, CT ON 11/23 INDICATING PANCREATITI Discharge Diagnosis: Acute pancreatitis Activity: Resume your previous activity Non-emergency contact: Primary Care Provider and Bobbin Disker Call non-emergency contact if: you have any medication questions Follow-up/Referrals: Zac Seth MD [Primary Care Provider] - Diet: Low Fat Addtl Attending Provider Instructions: Please make appointment to follow-up with gastroenterology in 2 weeks Pending Studies at Discharge: No Stand-Alone Forms: My [facility] Biodesy, Smoking Cessation Medications and DC Order Prescriptions: Continued colchicine 0.6 mg tablet 0.6 mg PO QAM hydroxyzine HCl 25 mg tablet 25 mg PO HS acetaminophen 500 mg Tablet 500 mg PO Q6H PRN (Reason: pain/fever) pantoprazole 40 mg tablet,delayed release (DR/EC) 40 mg PO BID allopurinol 300 mg tablet 300 mg PO QAM escitalopram oxalate 20 mg tablet 20 mg PO HS Discharge Orders: Discharge Order (Routine); Ordered 11/26/23 Ordered By: Melanie Pal Admission Data Admit Date/Time: 11/24/23 15:13 Attending Provider: Melanie Pal Admit Provider: Sreedhar Jordan Primary Care Provider: Zac Seth Other Providers: Sreedhar Jordan; Sage Jones Coding Level of Care Code 54360 INP/OBS DISCH >30 MIN Diagnoses Acute pancreatitis K85.90 Acute pancreatitis complication: unspecified Pancreatitis type: unspecified pancreatitis type Hypomagnesemia E83.42 Hypokalemia E87.6 Gout M10.9 Anxiety F41.9 GERD (gastroesophageal reflux disease) K21.9 Erectile dysfunction N52.9 Diarrhea R19.7 Tobacco use Z72.0 Time Spent (min) 35
== END 2023-11-26 13:14 | disposition home or self-care (01) | DRG 440 ==
LOC: ED 11:44 → 2W 15:13 → SUATTDRO 15:13 → 2W 17:40